=== PATIENT | female | born 1940 | race Caucasian/White ===

== ENCOUNTER 2016-11-28 20:35 | Inpatient (IN) | payer MEDICARE, OTHER ==
[~2016-11-28] VITALS: Ht 170.2 cm; Wt 108.8 kg
[2016-11-28] VITALS (149 sets, daily range): BP systolic 72; BP diastolic 34; PULSE 88; TEMP 97; O2SAT 64–95
[~2016-11-28 20:35] MED LIST: ZESTRIL 20MG TA20 MG PO
[2016-11-29] VITALS (988 sets, daily range): BP systolic 75–194; BP diastolic 44–87; PULSE 84–100; TEMP 96.9–98.6; O2SAT 80–100
[2016-11-29 06:21] LABS: HEMATOCRIT 37.2 % (37.0-47.0); HEMOGLOBIN 12.5 g/dl (12.5-16.0); MEAN CELL VOLUME 95 fl (80.0-100.0); MEAN CORPUSCULAR HEMOGLOBIN 32 pg (27.0-31.0); MEAN CORPUSCULAR HGB CONC 34 g/dl (33.0-37.0); MEAN PLATELET VOLUME 10.4 fl (7.4-10.4); PLATELET COUNT 147 K/mm3 (130-400); RED BLOOD COUNT 3.91 M/mm3 (4.10-5.30); WHITE BLOOD COUNT 11.6 K/mm3 (4.8-10.8)
[2016-11-29 06:23] LABS: ADD PATHOLOGY DIFF REVIEW NO
[2016-11-29 06:33] LABS: ADJUSTED CALCIUM 8.1 mg/dL (8.4-10.2); ALBUMIN 2.9 gm/dL (3.5-5.0); BILIRUBIN,TOTAL 1.5 mg/dL (0.0-1.0); CALCIUM 7.2 mg/dL (8.4-10.2); CREATININE, serum 3.1 mg/dL (0.52-1.25); POTASSIUM 4.1 mmol/L (3.4-5.0); TOTAL PROTEIN 5.9 gm/dL (6.4-8.2)
[2016-11-29 07:03] LABS: BAND 21 % (0-10); METAMYELOCYTE 1 % (0-0); NEUTROPHILS 67 % (42.0-75.2); TOTAL CELLS COUNTED 100
[2016-11-29 07:10] LABS: PLATELET ESTIMATE NORMAL (NORMAL)
[2016-11-29 07:44] LABS: C-REACTIVE PROTEIN 37.8 mg/dL (0.0-0.9)
[2016-11-29 09:15] LABS: ARTERIAL BLD GAS O2 SATURATION 92.4 % (92-100); ARTERIAL BLD GAS TCO2 CT 27.6; ARTERIAL BLOOD GAS BASE EXCESS 1.4 (-2-2); ARTERIAL BLOOD GAS HCO3 26.3 meq/L (22-26); ARTERIAL BLOOD GAS PHT 7.41 C (7.35-7.45); ARTERIAL BLOOD GAS PO2 74.3 mmHg (80-100); ARTERIAL BLOOD GAS PO2T 74.3 (80-100); ARTERIAL BLOOD GAS pH 7.41 (7.35-7.45); OXYHEMOGLOBIN 91.4 %
[2016-11-29 09:17] LABS: ALLEN TEST YES; ALLENS TEST RESULT PASS; ATS? YES
[2016-11-29 17:10] LABS: ARTERIAL BLD GAS O2 SATURATION 96.4 % (92-100); ARTERIAL BLD GAS TCO2 CT 23.8; ARTERIAL BLOOD GAS BASE EXCESS -2.9 (-2-2); ARTERIAL BLOOD GAS HCO3 22.5 meq/L (22-26); ARTERIAL BLOOD GAS PHT 7.35 C (7.35-7.45); ARTERIAL BLOOD GAS PO2 106.7 mmHg (80-100); ARTERIAL BLOOD GAS PO2T 106.7 (80-100); ARTERIAL BLOOD GAS pH 7.35 (7.35-7.45); OXYHEMOGLOBIN 95.6 %
[2016-11-29 17:12] LABS: ALLEN TEST YES; ALLENS TEST RESULT PASS; ATS? YES
[2016-11-29 21:13] LABS: BASO % 0.4 % (0.0-2.0); GRAN # 2.5 (1.4-6.5); GRAN % 89.1 % (42.2-75.2); LYMPH # 0.1 (1.2-3.4); LYMPH % 2.8 % (20.0-51.0); MEAN CELL VOLUME 98 fl (80.0-100.0); MEAN CORPUSCULAR HGB CONC 33 g/dl (33.0-37.0); MEAN PLATELET VOLUME 10.9 fl (7.4-10.4); MONO # 0.2 (0.1-0.6); MONO % 7.7 % (1.7-9.3); PLATELET COUNT 91 K/mm3 (130-400); RED BLOOD COUNT 3.46 M/mm3 (4.10-5.30); REDCELL DISTRIBUTION WIDTH-CV 14.1 % (11.5-14.5); WHITE BLOOD COUNT 2.8 K/mm3 (4.8-10.8)
[2016-11-29 21:14] LABS: HEMATOCRIT 33.9 % (37.0-47.0); HEMOGLOBIN 11.1 g/dl (12.5-16.0); MEAN CORPUSCULAR HEMOGLOBIN 32 pg (27.0-31.0)
[2016-11-29 21:16] LABS: INR 1.6 (0.8-3.0); PROTHROMBIN TIME 17.4 SECONDS (9.7-12.8)
[2016-11-29 21:24] LABS: CALCIUM 6.4 mg/dL (8.4-10.2); CREATININE, serum 1.67 mg/dL (0.52-1.25); MAGNESIUM 1.8 mg/dL (1.6-2.3); POTASSIUM 3.6 mmol/L (3.4-5.0)
[2016-11-29 21:42] LABS: ARTERIAL BLD GAS O2 SATURATION 96.5 % (92-100); ARTERIAL BLD GAS TCO2 CT 24.8; ARTERIAL BLOOD GAS BASE EXCESS -0.9 (-2-2); ARTERIAL BLOOD GAS HCO3 23.6 meq/L (22-26); ARTERIAL BLOOD GAS PHT 7.41 C (7.35-7.45); ARTERIAL BLOOD GAS PO2 101.8 mmHg (80-100); ARTERIAL BLOOD GAS PO2T 101.8 (80-100); ARTERIAL BLOOD GAS pH 7.41 (7.35-7.45); OXYHEMOGLOBIN 95.7 %
[2016-11-29 21:43] LABS: ATS? YES
[2016-11-29 21:44] LABS: ABG VENTILATOR TIDAL VOLUME 450 mL; ALLEN TEST YES; ALLENS TEST RESULT PASS
[2016-11-30] VITALS (1326 sets, daily range): BP systolic 80–111; BP diastolic 41–61; PULSE 69–122; TEMP 97.6–100; O2SAT 75–100
[2016-11-30 05:16] LABS: ALLEN TEST YES; ALLENS TEST RESULT PASS; ARTERIAL BLD GAS O2 SATURATION 96.4 % (92-100); ARTERIAL BLD GAS TCO2 CT 20.5; ARTERIAL BLOOD GAS BASE EXCESS -4.3 (-2-2); ARTERIAL BLOOD GAS HCO3 19.6 meq/L (22-26); ARTERIAL BLOOD GAS PHT 7.42 C (7.35-7.45); ARTERIAL BLOOD GAS PO2 101.6 mmHg (80-100); ARTERIAL BLOOD GAS PO2T 101.6 (80-100); ARTERIAL BLOOD GAS pH 7.42 (7.35-7.45); ATS? YES; OXYHEMOGLOBIN 95.2 %
[2016-11-30 05:18] LABS: MEAN CELL VOLUME 97 fl (80.0-100.0); MEAN CORPUSCULAR HGB CONC 33 g/dl (33.0-37.0); MEAN PLATELET VOLUME 11.3 fl (7.4-10.4); PLATELET COUNT 90 K/mm3 (130-400); RED BLOOD COUNT 3.49 M/mm3 (4.10-5.30); REDCELL DISTRIBUTION WIDTH-CV 14.3 % (11.5-14.5); WHITE BLOOD COUNT 7.5 K/mm3 (4.8-10.8)
[2016-11-30 05:27] LABS: ADJUSTED CALCIUM 8.1 mg/dL (8.4-10.2); ALBUMIN 1.9 gm/dL (3.5-5.0); BILIRUBIN,TOTAL 1.1 mg/dL (0.0-1.0); CALCIUM 6.4 mg/dL (8.4-10.2); CREATININE, serum 1.64 mg/dL (0.52-1.25); MAGNESIUM 1.9 mg/dL (1.6-2.3); POTASSIUM 3.8 mmol/L (3.4-5.0); TOTAL PROTEIN 4.1 gm/dL (6.4-8.2)
[2016-11-30 05:28] LABS: ADD PATHOLOGY DIFF REVIEW NO; HEMATOCRIT 33.9 % (37.0-47.0); HEMOGLOBIN 11.1 g/dl (12.5-16.0); MEAN CORPUSCULAR HEMOGLOBIN 32 pg (27.0-31.0)
[2016-11-30 05:56] LABS: BAND 78 % (0-10); METAMYELOCYTE 2 % (0-0); NEUTROPHILS 13 % (42.0-75.2); PLATELET ESTIMATE DECREASED (NORMAL); TOTAL CELLS COUNTED 100
[2016-12-01] VITALS (847 sets, daily range): BP systolic 96–126; BP diastolic 46–68; PULSE 67–77; TEMP 97–98.7; O2SAT 80–100
[2016-12-01 05:22] LABS: MEAN CELL VOLUME 99 fl (80.0-100.0); MEAN CORPUSCULAR HGB CONC 32 g/dl (33.0-37.0); MEAN PLATELET VOLUME 10.9 fl (7.4-10.4); PLATELET COUNT 81 K/mm3 (130-400); RED BLOOD COUNT 3.16 M/mm3 (4.10-5.30); REDCELL DISTRIBUTION WIDTH-CV 14.6 % (11.5-14.5); WHITE BLOOD COUNT 7.5 K/mm3 (4.8-10.8)
[2016-12-01 05:27] LABS: ADJUSTED CALCIUM 8.7 mg/dL (8.4-10.2); BILIRUBIN,TOTAL 0.6 mg/dL (0.0-1.0); CALCIUM 7.1 mg/dL (8.4-10.2); CREATININE, serum 0.95 mg/dL (0.52-1.25); MAGNESIUM 2.2 mg/dL (1.6-2.3); PHOSPHOROUS 2.8 mg/dL (2.5-4.5); POTASSIUM 3.4 mmol/L (3.4-5.0); TOTAL PROTEIN 4.3 gm/dL (6.4-8.2)
[2016-12-01 05:30] LABS: ADD PATHOLOGY DIFF REVIEW NO; HEMATOCRIT 31.4 % (37.0-47.0); HEMOGLOBIN 10.1 g/dl (12.5-16.0); MEAN CORPUSCULAR HEMOGLOBIN 32 pg (27.0-31.0)
[2016-12-01 06:20] LABS: BAND 65 % (0-10); METAMYELOCYTE 1 % (0-0); NEUTROPHILS 24 % (42.0-75.2); PLATELET ESTIMATE DECREASED (NORMAL); TOTAL CELLS COUNTED 100
[2016-12-01 20:59] LABS: ARTERIAL BLD GAS O2 SATURATION 91.5 % (92-100); ARTERIAL BLD GAS TCO2 CT 24.6; ARTERIAL BLOOD GAS BASE EXCESS -2.3 (-2-2); ARTERIAL BLOOD GAS HCO3 23.3 meq/L (22-26); ARTERIAL BLOOD GAS PHT 7.35 C (7.35-7.45); ARTERIAL BLOOD GAS PO2 66.9 mmHg (80-100); ARTERIAL BLOOD GAS PO2T 66.9 (80-100); ARTERIAL BLOOD GAS pH 7.35 (7.35-7.45); OXYHEMOGLOBIN 90.2 %
[2016-12-01 21:00] LABS: ALLEN TEST YES; ALLENS TEST RESULT PASS; ATS? YES
[2016-12-02] VITALS (757 sets, daily range): BP systolic 112–166; BP diastolic 54–119; PULSE 73–82; TEMP 96.6–99.1; O2SAT 74–98
[2016-12-02 05:25] LABS: ARTERIAL BLD GAS O2 SATURATION 95.4 % (92-100); ARTERIAL BLOOD GAS BASE EXCESS 2.1 (-2-2); ARTERIAL BLOOD GAS HCO3 25.8 meq/L (22-26); ARTERIAL BLOOD GAS PO2 78.9 mmHg (80-100); ARTERIAL BLOOD GAS pH 7.46 (7.35-7.45); ATS? YES; OXYHEMOGLOBIN 94.8 %
[2016-12-02 05:26] LABS: ALLEN TEST NO
[2016-12-02 06:19] LABS: MEAN CELL VOLUME 98 fl (80.0-100.0); MEAN CORPUSCULAR HGB CONC 32 g/dl (33.0-37.0); MEAN PLATELET VOLUME 12.1 fl (7.4-10.4); PLATELET COUNT 97 K/mm3 (130-400); RED BLOOD COUNT 3.14 M/mm3 (4.10-5.30); WHITE BLOOD COUNT 9.4 K/mm3 (4.8-10.8)
[2016-12-02 06:30] LABS: CALCIUM 7.9 mg/dL (8.4-10.2); CREATININE, serum 0.69 mg/dL (0.52-1.25); MAGNESIUM 2.2 mg/dL (1.6-2.3); PHOSPHOROUS 1.9 mg/dL (2.5-4.5); POTASSIUM 3.7 mmol/L (3.4-5.0)
[2016-12-02 06:36] LABS: HEMATOCRIT 30.8 % (37.0-47.0); HEMOGLOBIN 9.9 g/dl (12.5-16.0); MEAN CORPUSCULAR HEMOGLOBIN 32 pg (27.0-31.0)
[2016-12-02 06:37] LABS: ADD PATHOLOGY DIFF REVIEW NO
[2016-12-02 07:53] LABS: ARTERIAL BLD GAS O2 SATURATION 95.4 % (92-100); ARTERIAL BLOOD GAS BASE EXCESS 2.1 (-2-2); ARTERIAL BLOOD GAS HCO3 25.8 meq/L (22-26); ARTERIAL BLOOD GAS PO2 78.9 mmHg (80-100); ARTERIAL BLOOD GAS pH 7.46 (7.35-7.45)
[2016-12-02 07:54] LABS: ALLEN TEST NO; ATS? YES
[2016-12-02 08:08] LABS: BAND 10 % (0-10); NEUTROPHILS 76 % (42.0-75.2); TOTAL CELLS COUNTED 100
[2016-12-02 08:10] LABS: ANISOCYTOSIS 1+; HYPOCHROMIA 1+; PLATELET ESTIMATE DECREASED (NORMAL)
[2016-12-02 19:03] LABS: ADJUSTED CALCIUM 9.5 mg/dL (8.4-10.2); BILIRUBIN,TOTAL 0.6 mg/dL (0.0-1.0); TOTAL PROTEIN 4.6 gm/dL (6.4-8.2)
[2016-12-03] VITALS (917 sets, daily range): BP systolic 147–160; BP diastolic 86–92; PULSE 72–79; TEMP 97.3–98.9; O2SAT 80–98
[2016-12-03 05:48] LABS: MEAN CELL VOLUME 97 fl (80.0-100.0); MEAN CORPUSCULAR HGB CONC 33 g/dl (33.0-37.0); MEAN PLATELET VOLUME 11.8 fl (7.4-10.4); PLATELET COUNT 111 K/mm3 (130-400); RED BLOOD COUNT 3.37 M/mm3 (4.10-5.30); WHITE BLOOD COUNT 9.8 K/mm3 (4.8-10.8)
[2016-12-03 05:50] LABS: HEMATOCRIT 32.6 % (37.0-47.0); HEMOGLOBIN 10.7 g/dl (12.5-16.0); MEAN CORPUSCULAR HEMOGLOBIN 32 pg (27.0-31.0)
[2016-12-03 05:51] LABS: ADD PATHOLOGY DIFF REVIEW NO
[2016-12-03 06:02] LABS: BAND 28 % (0-10); EOSINOPHIL 1 % (0-4); NEUTROPHILS 58 % (42.0-75.2); PLATELET ESTIMATE NORMAL (NORMAL); TOTAL CELLS COUNTED 100
[2016-12-03 06:13] LABS: CREATININE, serum 0.56 mg/dL (0.52-1.25); POTASSIUM 3.1 mmol/L (3.4-5.0)
[2016-12-03 06:26] LABS: MAGNESIUM 1.7 mg/dL (1.6-2.3); PHOSPHOROUS 2.4 mg/dL (2.5-4.5)
[2016-12-04] VITALS (606 sets, daily range): BP systolic 133–153; BP diastolic 63–90; PULSE 71–91; TEMP 97.4–98.9; O2SAT 85–98
[2016-12-04 06:39] LABS: CALCIUM 7.8 mg/dL (8.4-10.2); CREATININE, serum 0.5 mg/dL (0.52-1.25); MAGNESIUM 1.7 mg/dL (1.6-2.3); PHOSPHOROUS 3.6 mg/dL (2.5-4.5); POTASSIUM 3.6 mmol/L (3.4-5.0)
[2016-12-04 08:01] LABS: MEAN CELL VOLUME 97 fl (80.0-100.0); MEAN CORPUSCULAR HGB CONC 33 g/dl (33.0-37.0); MEAN PLATELET VOLUME 11.4 fl (7.4-10.4); PLATELET COUNT 147 K/mm3 (130-400); REDCELL DISTRIBUTION WIDTH-CV 14.9 % (11.5-14.5); WHITE BLOOD COUNT 16.4 K/mm3 (4.8-10.8)
[2016-12-04 08:06] LABS: ADJUSTED CALCIUM 9.1 mg/dL (8.4-10.2); ALBUMIN 2.4 gm/dL (3.5-5.0); BILIRUBIN,TOTAL 0.6 mg/dL (0.0-1.0); CALCIUM 7.8 mg/dL (8.4-10.2); CREATININE, serum 0.48 mg/dL (0.52-1.25); POTASSIUM 3.6 mmol/L (3.4-5.0); TOTAL PROTEIN 4.9 gm/dL (6.4-8.2)
[2016-12-04 08:09] LABS: ADD PATHOLOGY DIFF REVIEW NO; HEMATOCRIT 34.9 % (37.0-47.0); HEMOGLOBIN 11.4 g/dl (12.5-16.0); MEAN CORPUSCULAR HEMOGLOBIN 32 pg (27.0-31.0)
[2016-12-04 08:28] LABS: ANISOCYTOSIS 1+; BAND 10 % (0-10); METAMYELOCYTE 1 % (0-0); MYELOCYTE 2 % (0-0); NEUTROPHILS 78 % (42.0-75.2); PLATELET ESTIMATE NORMAL (NORMAL); TOTAL CELLS COUNTED 100
[2016-12-05 04:42] VITALS: BP 158/78; PULSE 72; TEMP 98.3
[2016-12-05 07:21] LABS: MEAN CELL VOLUME 97 fl (80.0-100.0); MEAN CORPUSCULAR HGB CONC 33 g/dl (33.0-37.0); PLATELET COUNT 169 K/mm3 (130-400); RED BLOOD COUNT 3.56 M/mm3 (4.10-5.30); REDCELL DISTRIBUTION WIDTH-CV 14.5 % (11.5-14.5); WHITE BLOOD COUNT 17.6 K/mm3 (4.8-10.8)
[2016-12-05 07:26] LABS: CREATININE, serum 0.48 mg/dL (0.52-1.25); MAGNESIUM 1.7 mg/dL (1.6-2.3); PHOSPHOROUS 3.8 mg/dL (2.5-4.5); POTASSIUM 3.5 mmol/L (3.4-5.0)
[2016-12-05 07:40] LABS: ADD PATHOLOGY DIFF REVIEW NO; HEMATOCRIT 34.4 % (37.0-47.0); HEMOGLOBIN 11.3 g/dl (12.5-16.0); MEAN CORPUSCULAR HEMOGLOBIN 32 pg (27.0-31.0)
[2016-12-05 09:32] LABS: ANISOCYTOSIS 1+; BAND 17 % (0-10); EOSINOPHIL 1 % (0-4); NEUTROPHILS 74 % (42.0-75.2); TOTAL CELLS COUNTED 100
[2016-12-05 09:33] LABS: HYPOCHROMIA 1+; PLATELET ESTIMATE NORMAL (NORMAL)
[2016-12-05 10:00] VITALS: BP 117/64; PULSE 78; TEMP 97.7
[2016-12-05 13:43] VITALS: BP 118/56; PULSE 71; TEMP 97.6
[2016-12-05 18:31] VITALS: BP 97/64; PULSE 69; TEMP 97.4
[2016-12-05 21:09] VITALS: BP 151/67; PULSE 66; TEMP 97.2
[2016-12-06] VITALS (13 sets, daily range): BP systolic 100–150; BP diastolic 45–69; PULSE 61–106; TEMP 97–98.2
[2016-12-06 06:54] LABS: ADD PATHOLOGY DIFF REVIEW NO
[2016-12-06 07:07] LABS: MEAN CELL VOLUME 99 fl (80.0-100.0); MEAN CORPUSCULAR HGB CONC 32 g/dl (33.0-37.0); MEAN PLATELET VOLUME 12.3 fl (7.4-10.4); PLATELET COUNT 205 K/mm3 (130-400); RED BLOOD COUNT 3.33 M/mm3 (4.10-5.30); REDCELL DISTRIBUTION WIDTH-CV 14.5 % (11.5-14.5); WHITE BLOOD COUNT 18.4 K/mm3 (4.8-10.8)
[2016-12-06 07:09] LABS: HEMATOCRIT 32.8 % (37.0-47.0); HEMOGLOBIN 10.5 g/dl (12.5-16.0); MEAN CORPUSCULAR HEMOGLOBIN 32 pg (27.0-31.0)
[2016-12-06 07:21] LABS: CALCIUM 7.8 mg/dL (8.4-10.2); CREATININE, serum 0.52 mg/dL (0.52-1.25); MAGNESIUM 1.8 mg/dL (1.6-2.3); POTASSIUM 3.4 mmol/L (3.4-5.0)
[2016-12-06 08:52] LABS: BAND 18 % (0-10); NEUTROPHILS 67 % (42.0-75.2); TOTAL CELLS COUNTED 100
[2016-12-07 06:07] VITALS: BP 135/64; PULSE 61; TEMP 98.2
[2016-12-07 08:26] LABS: MEAN CELL VOLUME 99 fl (80.0-100.0); MEAN CORPUSCULAR HGB CONC 32 g/dl (33.0-37.0); MEAN PLATELET VOLUME 12.6 fl (7.4-10.4); PLATELET COUNT 224 K/mm3 (130-400); RED BLOOD COUNT 3.28 M/mm3 (4.10-5.30); REDCELL DISTRIBUTION WIDTH-CV 14.5 % (11.5-14.5)
[2016-12-07 08:30] LABS: ADD PATHOLOGY DIFF REVIEW NO; HEMATOCRIT 32.3 % (37.0-47.0); HEMOGLOBIN 10.4 g/dl (12.5-16.0); MEAN CORPUSCULAR HEMOGLOBIN 32 pg (27.0-31.0)
[2016-12-07 08:59] VITALS: BP 124/48; PULSE 66; TEMP 97.1
[2016-12-07 09:06] LABS: BAND 10 % (0-10); NEUTROPHILS 81 % (42.0-75.2); TOTAL CELLS COUNTED 100
[2016-12-07 12:33] VITALS: BP 95/71; PULSE 63; TEMP 96.8
[2016-12-07 17:34] VITALS: BP 140/68; PULSE 64; TEMP 96.9
[2016-12-07 19:17] LABS: 12 HR URINE TOTAL VOLUME 0.98 L
[2016-12-07 22:00] VITALS: BP 110/51; PULSE 66; TEMP 97.9
[2016-12-08 02:00] VITALS: BP 121/58; PULSE 64; TEMP 98.2
[2016-12-08 06:39] VITALS: BP 111/55; PULSE 68; TEMP 98.1
[2016-12-08 07:45] LABS: MEAN CELL VOLUME 99 fl (80.0-100.0); MEAN CORPUSCULAR HGB CONC 32 g/dl (33.0-37.0); MEAN PLATELET VOLUME 12.4 fl (7.4-10.4); PLATELET COUNT 231 K/mm3 (130-400); RED BLOOD COUNT 3.05 M/mm3 (4.10-5.30); REDCELL DISTRIBUTION WIDTH-CV 14.5 % (11.5-14.5); WHITE BLOOD COUNT 15.3 K/mm3 (4.8-10.8)
[2016-12-08 07:55] LABS: CALCIUM 7.8 mg/dL (8.4-10.2); CREATININE, serum 0.5 mg/dL (0.52-1.25); PHOSPHOROUS 3.4 mg/dL (2.5-4.5); POTASSIUM 3.5 mmol/L (3.4-5.0)
[2016-12-08 08:13] LABS: HEMATOCRIT 30.1 % (37.0-47.0); HEMOGLOBIN 9.7 g/dl (12.5-16.0); MEAN CORPUSCULAR HEMOGLOBIN 32 pg (27.0-31.0)
[2016-12-08 08:14] LABS: ADD PATHOLOGY DIFF REVIEW NO
[2016-12-08 09:05] LABS: ANISOCYTOSIS 1+; BAND 9 % (0-10); NEUTROPHILS 86 % (42.0-75.2); TOTAL CELLS COUNTED 100
[2016-12-08 09:06] LABS: HYPOCHROMIA 1+; PLATELET ESTIMATE NORMAL (NORMAL)
[2016-12-08 09:34] VITALS: BP 116/44; PULSE 68; TEMP 97.6
[2016-12-08 14:18] VITALS: BP 146/63; PULSE 74; TEMP 98.2
[2016-12-08 17:32] VITALS: BP 111/70; PULSE 65; TEMP 98.3
[2016-12-08 22:25] VITALS: BP 121/53; PULSE 64; TEMP 97.9
[2016-12-09] VITALS (26 sets, daily range): BP systolic 73–122; BP diastolic 25–54; PULSE 58–79; TEMP 97.5–98.1
[2016-12-09 08:00] LABS: MEAN CELL VOLUME 98 fl (80.0-100.0); MEAN CORPUSCULAR HGB CONC 32 g/dl (33.0-37.0); MEAN PLATELET VOLUME 12.8 fl (7.4-10.4); PLATELET COUNT 276 K/mm3 (130-400); RED BLOOD COUNT 3.14 M/mm3 (4.10-5.30); REDCELL DISTRIBUTION WIDTH-CV 14.6 % (11.5-14.5); WHITE BLOOD COUNT 15.6 K/mm3 (4.8-10.8)
[2016-12-09 08:14] LABS: ADD PATHOLOGY DIFF REVIEW NO; HEMATOCRIT 30.6 % (37.0-47.0); HEMOGLOBIN 9.9 g/dl (12.5-16.0); MEAN CORPUSCULAR HEMOGLOBIN 32 pg (27.0-31.0)
[2016-12-09 08:19] LABS: CALCIUM 7.9 mg/dL (8.4-10.2); CREATININE, serum 0.53 mg/dL (0.52-1.25); POTASSIUM 3.6 mmol/L (3.4-5.0)
[2016-12-09 10:33] LABS: BAND 12 % (0-10); EOSINOPHIL 2 % (0-4); NEUTROPHILS 78 % (42.0-75.2); TOTAL CELLS COUNTED 100
[2016-12-09 10:34] LABS: ANISOCYTOSIS 1+; HYPOCHROMIA 1+; PLATELET ESTIMATE NORMAL (NORMAL)
[2016-12-09 11:09] LABS: RETIC % 2.5 % (0.5-3.52)
[2016-12-09 11:20] LABS: TOTAL IRON BINDING CAPACITY 301 ug/dL (265-497)
[2016-12-09 11:47] LABS: FERRITIN 128 ng/mL (11-264)
[2016-12-10 01:19] VITALS: BP 122/59; PULSE 67; TEMP 97.9
[2016-12-10 07:07] VITALS: BP 147/58; PULSE 70; TEMP 97.8
[2016-12-10 07:44] LABS: BASO % 0.2 % (0.0-2.0); EOS # 0.1 (0.0-0.7); EOS % 0.7 % (0-4.0); GRAN # 10.2 (1.4-6.5); GRAN % 83.7 % (42.2-75.2); LYMPH # 0.9 (1.2-3.4); LYMPH % 7.6 % (20.0-51.0); MEAN CELL VOLUME 97 fl (80.0-100.0); MEAN CORPUSCULAR HGB CONC 33 g/dl (33.0-37.0); MEAN PLATELET VOLUME 12.4 fl (7.4-10.4); MONO # 0.8 (0.1-0.6); MONO % 6.6 % (1.7-9.3); PLATELET COUNT 291 K/mm3 (130-400); RED BLOOD COUNT 2.94 M/mm3 (4.10-5.30); REDCELL DISTRIBUTION WIDTH-CV 14.6 % (11.5-14.5); WHITE BLOOD COUNT 12.2 K/mm3 (4.8-10.8)
[2016-12-10 07:49] LABS: HEMATOCRIT 28.6 % (37.0-47.0); HEMOGLOBIN 9.3 g/dl (12.5-16.0); MEAN CORPUSCULAR HEMOGLOBIN 32 pg (27.0-31.0)
[2016-12-10 07:57] LABS: ALBUMIN 2.3 gm/dL (3.5-5.0); BILIRUBIN,TOTAL 0.4 mg/dL (0.0-1.0); CALCIUM 7.6 mg/dL (8.4-10.2); CREATININE, serum 0.51 mg/dL (0.52-1.25); POTASSIUM 3.6 mmol/L (3.4-5.0); TOTAL PROTEIN 4.7 gm/dL (6.4-8.2)
[2016-12-10 08:21] LABS: PHOSPHOROUS 3.3 mg/dL (2.5-4.5)
[2016-12-10 09:39] VITALS: BP 111/43; PULSE 66; TEMP 97.5
[2016-12-10 14:19] VITALS: BP 113/55; PULSE 62; TEMP 97.8
[2016-12-10 17:55] VITALS: BP 118/74; PULSE 64; TEMP 98
[2016-12-10 21:22] VITALS: BP 108/50; PULSE 63; TEMP 98
[2016-12-11 01:52] VITALS: BP 106/42; PULSE 59; TEMP 98.3
[2016-12-11 05:04] VITALS: BP 117/59; PULSE 73; TEMP 98
[2016-12-11 06:10] LABS: BASO % 0.1 % (0.0-2.0); EOS # 0.1 (0.0-0.7); EOS % 0.7 % (0-4.0); GRAN % 82.7 % (42.2-75.2); LYMPH # 0.9 (1.2-3.4); LYMPH % 8.3 % (20.0-51.0); MEAN CELL VOLUME 99 fl (80.0-100.0); MEAN CORPUSCULAR HGB CONC 32 g/dl (33.0-37.0); MONO # 0.8 (0.1-0.6); MONO % 7.2 % (1.7-9.3); PLATELET COUNT 320 K/mm3 (130-400); RED BLOOD COUNT 2.94 M/mm3 (4.10-5.30); REDCELL DISTRIBUTION WIDTH-CV 14.6 % (11.5-14.5); WHITE BLOOD COUNT 10.9 K/mm3 (4.8-10.8)
[2016-12-11 06:11] LABS: HEMATOCRIT 29.1 % (37.0-47.0); HEMOGLOBIN 9.3 g/dl (12.5-16.0); MEAN CORPUSCULAR HEMOGLOBIN 32 pg (27.0-31.0)
[2016-12-11 06:15] LABS: ADJUSTED CALCIUM 9.1 mg/dL (8.4-10.2); ALBUMIN 2.3 gm/dL (3.5-5.0); BILIRUBIN,TOTAL 0.4 mg/dL (0.0-1.0); CALCIUM 7.7 mg/dL (8.4-10.2); CREATININE, serum 0.52 mg/dL (0.52-1.25); POTASSIUM 3.5 mmol/L (3.4-5.0); TOTAL PROTEIN 4.8 gm/dL (6.4-8.2)
[2016-12-11 09:52] VITALS: BP 113/51; PULSE 61; TEMP 97.2
[2016-12-11 13:33] VITALS: BP 111/51; PULSE 66; TEMP 98
[2016-12-11 18:27] VITALS: BP 107/72; PULSE 67; TEMP 97.5
[2016-12-11 21:29] VITALS: BP 114/65; PULSE 65; TEMP 98.5
[2016-12-12] VITALS (13 sets, daily range): BP systolic 83–120; BP diastolic 46–58; PULSE 60–75; TEMP 97–98.8
[2016-12-12 07:29] LABS: CALCIUM 7.6 mg/dL (8.4-10.2); CREATININE, serum 0.5 mg/dL (0.52-1.25); MAGNESIUM 1.8 mg/dL (1.6-2.3); PHOSPHOROUS 3.6 mg/dL (2.5-4.5); POTASSIUM 3.7 mmol/L (3.4-5.0)
[2016-12-12 12:02] LABS: GLUCOSE,PLEURAL FLUID 75 mg/dL
[2016-12-12 12:04] LABS: PLEURAL FLUID - PMN 36.7 % (0-25)
[2016-12-12 18:23] LABS: PLEURAL FLUID LEFT SIDE; PLEURAL FLUID APPEARANCE TURBID; PLEURAL FLUID COLOR AMBER
[2016-12-13 05:13] VITALS: BP 115/62; PULSE 63; TEMP 98.3
[2016-12-13 08:10] LABS: BASO % 0.2 % (0.0-2.0); EOS # 0.1 (0.0-0.7); EOS % 0.6 % (0-4.0); GRAN # 6.8 (1.4-6.5); GRAN % 83.3 % (42.2-75.2); LYMPH # 0.6 (1.2-3.4); LYMPH % 7.5 % (20.0-51.0); MEAN CELL VOLUME 98 fl (80.0-100.0); MEAN CORPUSCULAR HGB CONC 32 g/dl (33.0-37.0); MEAN PLATELET VOLUME 11.2 fl (7.4-10.4); MONO # 0.6 (0.1-0.6); MONO % 7.7 % (1.7-9.3); PLATELET COUNT 350 K/mm3 (130-400); REDCELL DISTRIBUTION WIDTH-CV 14.6 % (11.5-14.5); WHITE BLOOD COUNT 8.2 K/mm3 (4.8-10.8)
[2016-12-13 08:17] LABS: HEMATOCRIT 28.5 % (37.0-47.0); HEMOGLOBIN 9.1 g/dl (12.5-16.0); MEAN CORPUSCULAR HEMOGLOBIN 31 pg (27.0-31.0)
[2016-12-13 08:30] LABS: CALCIUM 7.7 mg/dL (8.4-10.2); CREATININE, serum 0.53 mg/dL (0.52-1.25); POTASSIUM 3.8 mmol/L (3.4-5.0)
[2016-12-13 09:36] VITALS: BP 121/88; PULSE 73; TEMP 97.8
[2016-12-13 11:09] VITALS: BP 121/88; PULSE 73; TEMP 97.8
[2016-12-13] MEDS ORDERED: ROXICODONE 55 MG/TAB PO (11:22)
[2016-12-13] MEDS ORDERED: CORDARONE200 MG/TAB PO (11:23)
[2016-12-13] MEDS ORDERED: LOVENOX 4040 MG/0.4 SQ (11:24)
[2016-12-13] MEDS ORDERED: NICODERM C21 MG/PATC TD (11:25)
[2016-12-13] MEDS ORDERED: CARDIZEM120 MG PO (11:25)
[2016-12-13] MEDS ORDERED: SENOKOT S 50 MG1 TAB PO (11:25)
[2016-12-13] MEDS ORDERED: IPRATROPIUM BROM3 M1 IH (11:26)
[2016-12-13] MEDS ORDERED: RT ALBUTER2.5 MG/0.5 IH (11:27)
[2016-12-13] MEDS ORDERED: ATROVENT I0.2 MG/1 M IH (11:28)
[2016-12-13] MEDS ORDERED: TUMS500 MG CHEW (11:29)
[2016-12-13] MEDS ORDERED: XANAX .25M0.25 MG/TA PO (11:29)
== END 2016-12-13 12:20 | DRG 344 ==
LOC: SURG 20:35 → ICU 20:35 → IMCU 12-01 14:37 → ICU 12-01 14:37 → SURG 12-04 16:24 → IMCU 12-04 16:24 → SURG 12-13 12:20
PROVIDERS: Internal Medicine; Internal Medicine Pulmonary Disease; Nurse Practitioner Family; Surgery
PROC: 0DB80ZX Excision of Small Intestine, Open Approach, Diagnostic (ICD-10-PCS; principal; 2016-11-29 10:30)
PROC: 0WUF0JZ Supplement Abdominal Wall with Synthetic Substitute, Open Approach (ICD-10-PCS; 2016-11-29 10:30)
PROC: 0B968ZZ Drainage of Right Lower Lobe Bronchus, Via Natural or Artificial Opening Endoscopic (ICD-10-PCS; 2016-12-06)
PROC: 0B9B8ZZ Drainage of Left Lower Lobe Bronchus, Via Natural or Artificial Opening Endoscopic (ICD-10-PCS; 2016-12-06)
PROC: 0W9B3ZX Drainage of Left Pleural Cavity, Percutaneous Approach, Diagnostic (ICD-10-PCS; 2016-12-12)
DX: K43.0 Incisional hernia with obstruction, without gangrene (principal); J96.01 Acute respiratory failure with hypoxia; J96.02 Acute respiratory failure with hypercapnia; K55.019 Acute (reversible) ischemia of small intestine, extent unspecified; N17.9 Acute kidney failure, unspecified; K91.3 Postprocedural intestinal obstruction; B37.0 Candidal stomatitis; J90 Pleural effusion, not elsewhere classified; E44.0 Moderate protein-calorie malnutrition; I10 Essential (primary) hypertension; E86.0 Dehydration; N81.3 Complete uterovaginal prolapse; I48.0 Paroxysmal atrial fibrillation; J98.11 Atelectasis; Z85.038 Personal history of other malignant neoplasm of large intestine; Z85.830 Personal history of malignant neoplasm of bone; F17.210 Nicotine dependence, cigarettes, uncomplicated
CPT/HCPCS: 99222; 99231-AI; 99232-AI; A4217; A9284; A9502; B4178; C1781; J0282; J0330; J0610; J1100; J1170; J1200; J1644; J1650; J1815; J1940; J1956; J2060; J2250; J2270; J2370; J2405; J2704; J2765; J2785; J3010; J3475; J3480; J7030; J7040; J7042; J7050; J7060; J7120; J7131